=== PATIENT | female | born 1995 | race Caucasian/White ===

== ENCOUNTER 2017-07-12 15:54 | Emergency (ER) | payer OTHER ==
--- NOTE | 2017-07-12 16:19 | EDPHY ---
H & P Stated Complaint: PAIN/NAUSEA SINCE LAST NIGHT, HAD SIMILAR 6MO AGO: DX GALLSTONES Time Seen by Provider: 07/12/17 16:19 - Personal History LMP (Females 10-55): 8-14 Days Ago Current Tetanus/Diphtheria Vaccine: Yes - Medical/Surgical History Hx Asthma: No Hx Chronic Respiratory Disease: No Hx Diabetes: No Hx Cardiac Disease: No Hx Renal Disease: No Hx Cirrhosis: No Hx Alcoholism: No Hx HIV/AIDS: No Hx Splenectomy or Spleen Trauma: No Other PMH: ADHD, HTN, hx concussion, GALLSTONES, IBS - Social History Smoking Status: Never smoked Constitutional: Initial Vital Signs Temperature (C) 36.7 C 07/12/17 16:01 Heart Rate 55 L 07/12/17 16:01 Respiratory Rate 18 07/12/17 16:01 Blood Pressure 99/68 L 07/12/17 16:01 O2 Sat (%) 97 07/12/17 16:01 O2 Delivery Mode Room Air Allergies/Adverse Reactions: No Known Allergies Allergy (Unverified 07/12/17 16:00) Home Medications: Medication Instructions Recorded Adderall 10 MG (RX) 06/11/15 VYVANSE 06/11/15 Nexplanon 07/12/17 Medical Decision Making - Diagnostics Imaging Results: Imaging Impressions Abdomen Ultrasound 07/12/17 16:30 Impression: 5 mm noncalcified gallstone without evidence for cholecystitis. Results called and discussed with Adonay Stevens MD, on 07/12/2017, 17:48. Imaging: Discussed imaging studies w/ call out operator Radiologist ED Course/Re-evaluation: CHIEF COMPLAINT: Nausea, abdominal pain. HISTORY OF PRESENT ILLNESS: This patient is a 22 year old female complaining of abdominal pain. She was diagnosed with gallstones 6 months ago after two weeks of abdominal pain and nausea. She was evaluated by her primary care physician at that time but did not undergo surgery due to her school schedule. Last night the same symptoms recurred. She endorses upper abdominal pain and nausea exactly like her last gallbladder symptoms. She denies any family history of cholecystics or cholelithiasis. No fever, diarrhea, urinary complaints, headache, cough, or other associated symptoms. REVIEW OF SYSTEMS: A 10 point review of systems was performed and is negative with the exception of the elements mentioned in the history of present illness. PHYSICAL EXAM: HR, BP, O2 Sat, RR. Temp noted General Appearance: Alert, well hydrated, appropriate, and non-toxic appearing. Head: Atraumatic without scalp tenderness or obvious injury Eyes: Pupils equal, round, reactive to light and accommodation, EOMI, no trauma , no injection. Ears: Clear bilaterally, no perforation, normal landmarks Nose: Atraumatic, no rhinorrhea, clear. Throat: There is no erythema or exudates, no lesions, normal tonsils, mucus membranes moist. Neck: Supple, nontender, no lymphadenopathy. Respiratory: No retractions, no distress, no wheezes, and no accessory muscle use. Lungs are clear to auscultation bilaterally. Cardiovascular: Regular rate and rhythm, no murmurs, rubs, or gallops. Bilateral carotid, radial, dorsalis pedis, and posterior tibial pulses intact. Good capillary refill all extremities. Gastrointestinal: RUQ tenderness. Abdomen is soft, non-distended, no masses, no rebound, no guarding, no peritoneal signs. Musculoskeletal: Normal active ROM of all extremities, atraumatic. Neurological: Alert, appropriate, and interactive. Nonfocal neuro exam. Skin: No rashes, good turgor, no nodules on palpation. Past medical history: Cholelithiasis. IBS. Concussion. Hypertension. ADHD Past surgical history: Noncontributory. Family history: Noncontributory Social history: Originally from [place]. Student. Lives in [place]. DIFFERENTIAL DIAGNOSIS: The differential diagnosis for the patient's abdominal pain included but was not limited to ovarian cyst, pelvic inflammatory disease, ovarian torsion, urinary tract infection, ectopic , cholecystitis, and appendicitis. MEDICAL DECISION MAKIN22 y/o female with history of cholelithiasis presents with upper abdominal pain and nausea. She has right upper quadrant tenderness on exam. She is afebrile here in the emergency department. Plan for US abdomen, labs including CBC, chemistries, liver, lipase, UA. Plan to administer 4mg IV Zofran, 0.5mg IV Dilaudid, and 1L IV NS for symptom relief. 17:[address] Dyson, radiologist. US abdomen shows 5 mm noncalcified gallstone without evidence for cholecystitis. I discussed the likely need for cholecystectomy at some point to prevent further gallbladder attacks. The patient would like to consider surgery this week. Her mother will be visiting from [place] and she has a week off of work, so timing is ideal for cholecystectomy should that be warranted. Plan to consult with Dr. Glez [facility]. 18:[address] Glez. He offers the patient admission for surgery in the morning vs. outpatient followup and surgery later tomorrow. Reassessed patient. She would like to be discharged home tonight but will follow up with Dr. Glez in the office tomorrow. She understands she needs to be NPO after midnight tonight. Return precautions discussed. She will be discharged with Ethan and Ursula for symptom relief overnight. She is comfortable with this plan. - Data Points Laboratory Results: Laboratory Results 07/12/17 16:45 07/12/17 16:45 07/12/17 07/12/17 07/12/17 16:45 16:45 16:45 WBC 7.08 10^3/uL 10^3/uL (3.80-9.50) RBC 4.28 10^6/uL 10^6/uL (4.18-5.33) Hgb 13.0 g/dL g/dL (12.6-16.3) Hct 39.1 % % (38.0-47.0) MCV 91.4 fL fL (81.5-99.8) MCH 30.4 pg pg (27.9-34.1) MCHC 33.2 g/dL g/dL (32.4-36.7) RDW 13.4 % % (11.5-15.2) Plt Count 242 10^3/uL 10^3/uL (150-400) MPV 10.1 fL fL (8.7-11.7) Neut % (Auto) 48.2 % % (39.3-74.2) Lymph % (Auto) 39.1 % % (15.0-45.0) [place] % (Auto) 10.3 % % (4.5-13.0) Eos % (Auto) 1.7 % % (0.6-7.6) Baso % (Auto) 0.4 % % (0.3-1.7) Nucleat RBC Rel Count 0.0 % % (0.0-0.2) Absolute Neuts (auto) 3.41 10^3/uL 10^3/uL (1.70-6.50) Absolute Lymphs (auto) 2.77 10^3/uL 10^3/uL (1.00-3.00) Absolute Monos (auto) 0.73 10^3/uL 10^3/uL (0.30-0.80) Absolute Eos (auto) 0.12 10^3/uL 10^3/uL (0.03-0.40) Absolute Basos (auto) 0.03 10^3/uL 10^3/uL (0.02-0.10) Absolute Nucleated RBC 0.00 10^3/uL 10^3/uL (0-0.01) Immature Gran % 0.3 % % (0.0-1.1) Immature Gran # 0.02 10^3/uL 10^3/uL (0.00-0.10) Sodium 142 mEq/L mEq/L (135-145) Potassium 4.1 mEq/L mEq/L (3.3-5.0) Chloride 103 mEq/L mEq/L (97-110) Carbon Dioxide 26 mEq/l mEq/l (22-31) Anion Gap 13 mEq/L mEq/L (8-16) BUN 8 mg/dL mg/dL (7-23) Creatinine 0.8 mg/dL mg/dL (0.6-1.0) Estimated GFR > 60 Glucose 82 mg/dL mg/dL (70-100) Calcium 9.3 mg/dL mg/dL (8.5-10.4) Total Bilirubin 1.7 mg/dL H mg/dL (0.1-1.4) Conjugated Bilirubin 0.5 mg/dL mg/dL (0.0-0.5) Unconjugated Bilirubin 1.2 mg/dL H mg/dL (0.0-1.1) AST 24 IU/L IU/L (14-46) ALT 31 IU/L IU/L (9-52) Alkaline Phosphatase 70 IU/L IU/L (38-126) Total Protein 7.0 g/dL g/dL (6.3-8.2) Albumin 4.2 g/dL g/dL (3.5-5.0) Lipase 126 IU/L IU/L (23-300) Urine Color PALE YELLOW Urine Appearance CLEAR Urine pH 7.0 (5.0-7.5) Ur Specific [place] 1.008 (1.002-1.030) Urine Protein NEGATIVE (NEGATIVE) Urine Ketones NEGATIVE (NEGATIVE) Urine Blood NEGATIVE (NEGATIVE) Urine Nitrate NEGATIVE (NEGATIVE) Urine Bilirubin NEGATIVE (NEGATIVE) Urine Urobilinogen NEGATIVE EU EU (0.2-1.0) Ur Leukocyte Esterase NEGATIVE (NEGATIVE) Urine RBC NONE SEEN /hpf /hpf (0-3) Urine WBC 0-1 /hpf /hpf (0-3) Ur Epithelial Cells TRACE /lpf /lpf (NONE-1+) Urine Mucus TRACE /lpf /lpf (NONE-1+) Urine Glucose NEGATIVE (NEGATIVE) Medications Given: Discontinued Medications Hydrocodone Bitart/Acetaminophen ([place] 5/325mg Prepack#6) 1 btl TAKEHOME EDNOW ONE Stop: 07/12/17 18:44 Last Admin: 07/12/17 18:55 Dose: 1 btl Hydromorphone HCl (Dilaudid) 0.5 mg IVP EDNOW ONE Stop: 07/12/17 16:30 Last Admin: 07/12/17 17:21 Dose: 0.5 mg Sodium Chloride (Ns) 1,000 mls @ 0 mls/hr IV EDNOW ONE; Wide Open PRN Reason: Protocol Stop: 07/12/17 16:30 Last Admin: 07/12/17 17:17 Dose: 1,000 mls Ondansetron HCl (Zofran) 4 mg IVP EDNOW ONE Stop: 07/12/17 16:30 Last Admin: 07/12/17 17:18 Dose: 4 mg Ondansetron HCl (Zofran Odt 4 Mg Prepack#2) 1 btl TAKEHOME EDNOW ONE Stop: 07/12/17 18:44 Last Admin: 07/12/17 18:55 Dose: 1 btl Departure - Departure Disposition: Home, Routine, Self-Care Clinical Impression: Cholelithiasis Qualifiers: Cholelithiasis location: gallbladder Cholecystitis presence: without cholecystitis Biliary obstruction: without biliary obstruction Qualified Code(s) : K80.20 - Calculus of gallbladder without cholecystitis without obstruction Condition: Good Instructions: Hydrocodone/Acetaminophen (By mouth), Ondansetron (By mouth), Gallstones (ED) Additional Instructions: 1. Follow up with Dr. Glez, general surgeon at 9:00am tomorrow. Do not have anything to eat or drink after midnight tonight. 2. Return to the emergency department for fever, worsening pain, uncontrollable vomiting or diarrhea, or other worsening of conditions or further concerns. Referrals: Florentino Glez MD [Medical Doctor] - As per Instructions Report Scribed for: Adonay Stevens Report Scribed by: Kasia Thomas Date of Report: 07/12/17 Time of Report: 16:20
[2017-07-12] MEDS ORDERED: ONDANSETRON 4 MG/2 ML VIAL IVP ONE (16:29)
[2017-07-12] MEDS ORDERED: NS 1,000 ML IV ONE (16:29)
[2017-07-12] MEDS ORDERED: HYDROmorphONE/DILAUDID 2 MG/ML INJ IVP ONE (16:29)
[2017-07-12] MEDS ORDERED: HYDROmorphONE/DILAUDID 1 MG/ML INJ ONE (16:40)
[2017-07-12 16:58] LABS: PLATELET COUNT 242 10^3/uL (150-400)
[2017-07-12 18:37] VITALS: BP 120/75
[2017-07-12] MEDS ORDERED: HYDROCOD/APAP 5/325 PREPACK#6 BTL TAKEHOME ONE (18:43)
[2017-07-12] MEDS ORDERED: ONDANSETRON 4MG PREPACK#2 BTL TAKEHOME ONE (18:43)
== END 2017-07-12 18:50 | disposition home or self-care (01) ==
DX: K80.20 Calculus of gallbladder without cholecystitis without obstruction (principal); I10 Essential (primary) hypertension; E86.9 Volume depletion, unspecified
CPT/HCPCS: 96374; J1170; J2405

== ENCOUNTER 2017-07-13 11:39 | Day surgery (SDC) | payer OTHER ==
[2017-07-13] MEDS ORDERED: LR 1,000 ML IV ONE (12:02)
[2017-07-13] MEDS ORDERED: cefOXitin SODIUM 2 GM in NS 100 ML IV ONE (12:02)
[2017-07-13] MEDS ORDERED: ceFAZolin 1 GM/5 ML SYR ONE (15:09)
[2017-07-13] MEDS ORDERED: HEPARIN 1000 UNIT/1 ML MDV ONE (15:09)
[2017-07-13] MEDS ORDERED: IOTHALAMATE MEG (CONRAY) 50 ML VIAL IV ONE (15:09)
[2017-07-13] MEDS ORDERED: BUPIVACAINE 0.5% 30 ML SDV ONE (15:09)
[2017-07-13] MEDS ORDERED: MIDAZOLAM 2 MG/2 ML VIAL IVP ONE (15:41)
[2017-07-13] MEDS ORDERED: MIDAZOLAM 2 MG/2 ML VIAL ONE (15:48)
--- NOTE | 2017-07-13 15:53 | PDANEPAE ---
ANE History of Present Illness laparoscopic cholecystectomy ANE Past Medical History - Cardiovascular History Hx Hypertension: No Hx Arrhythmias: No Hx Chest Pain: No Hx Coronary Artery / Peripheral Vascular Disease: No Hx CHF / Valvular Disease: No Hx Palpitations: No - Pulmonary History Hx COPD: No Hx Asthma/Reactive Airway Disease: No Hx Recent Upper Respiratory Infection: No Hx Oxygen in Use at Home: No Hx Sleep Apnea: No Pulmonary History Comment: Pt reports "I smoke marijuana everyday." - Neurologic History Hx Cerebrovascular Accident: No Hx Seizures: No Hx Dementia: No Neurologic History Comment: concusions x 2 - 2 weeks ago "minor" - Endocrine History Hx Diabetes: No Obesity: no - Renal History Hx Renal Disorders: No - Liver History Hx Hepatic Disorders: No - Neurological & Psychiatric Hx Hx Neurological and Psychiatric Disorders: Yes Neurological / Psychiatric History Comment: ADHD - Congenital Disorder History Hx Congenital Disorders: No - GI History GERD: no Hx Gastrointestinal Disorders: Yes Gastrointestinal History Comment: IBS. Gallstones - Chronic Pain History Chronic Pain: No - Surgical History Prior Surgeries: tonsillectomy, ear tubes, septoplasty ANE Review of Systems Review of Systems: - Exercise capacity METS (RN): 6 METS ANE Patient History - Allergies Allergies/Adverse Reactions: No Known Allergies Allergy (Unverified 07/12/17 16:00) - Home Medications Home Medications: Adderall 10 MG (RX) 06/11/15 [Last Taken 07/11/17] VYVANSE 06/11/15 [Last Taken 2 Weeks Ago ~06/29/17] Nexplanon 07/12/17 [Last Taken 07/13/17] - NPO status NPO Since - Liquids (Date): 07/12/17 NPO Since - Liquids (Time): 22:00 NPO Since - Solids (Date): 07/12/17 NPO Since - Solids (Time): 22:00 - Anes Hx Anes Hx: no prior problems - Smoking Hx Smoking Status: Current every day smoker (marihuana only) Marijuana use: Yes - Alcohol Use Alcohol Use: Other (3 drinks X 3/week) - Family Anes Hx Family Anes Hx: none ANE Labs/Vital Signs - Vital Signs Blood Pressure: 107/49 Heart Rate: 54 Respiratory Rate: 18 O2 Sat (%): 96 Height: 167.64 cm Weight: 63.503 kg ANE Physical Exam - Airway Neck exam: FROM Mallampati Score: Class 1 Mouth exam: normal dental/mouth exam - Pulmonary Pulmonary: no respiratory distress - Cardiovascular Cardiovascular: regular rate and rhythym - ASA Status ASA Status: II (8)
--- NOTE | 2017-07-13 15:54 | PDHPUP ---
History & Physical Update H&P update statement: This history and physical update is based on an assessment of the patient which was completed after admission or registration (within 24 hours), but prior to the surgery/procedure. H&P update: H&P reviewed & patient examined, no change in patient's condition since H&P completed
[2017-07-13] MEDS ORDERED: fentaNYL 250 MCG/5 ML INJ ONE (16:00)
[2017-07-13] MEDS ORDERED: PROPOFOL 200 MG/20 ML VIAL ONE (16:01)
[2017-07-13] MEDS ORDERED: DEXAMETHASONE 4 MG/ML VIAL ONE (16:01)
[2017-07-13] MEDS ORDERED: ONDANSETRON 4 MG/2 ML VIAL ONE (16:51)
[2017-07-13] MEDS ORDERED: NALOXONE HCL 0.4 MG/ML INJ IVP PRN (17:01)
[2017-07-13] MEDS ORDERED: ACETAMINOPHEN 500 MG TAB PO PRN (17:01)
[2017-07-13] MEDS ORDERED: HYDROCODONE/APAP 5/325 TAB PO PRN (17:01)
[2017-07-13] MEDS ORDERED: oxyCODONE IR 5 MG TAB PO PRN (17:01)
[2017-07-13] MEDS ORDERED: ONDANSETRON 4 MG/2 ML VIAL IVP PRN (17:01)
[2017-07-13] MEDS ORDERED: GLYCOPYRROLATE 0.2 MG/1 ML VIAL ONE ×3 (17:07→17:45)
[2017-07-13] MEDS ORDERED: NEOSTIGMINE METHYLSULFATE 3 MG/3 ML SYR ONE (17:12)
--- NOTE | 2017-07-13 17:25 | POSTANESTH ---
Post Anesthetic Evaluation Cardiovascular Status: Normal, Stable Respiratory Status: Normal, Stable Level of Consciousness/Mental Status: Can Participate in Eval Pain Control: Adequate, Prn Tx Ordered Nausea/Vomiting Control: Adequate, Prn Tx Ordered Complications Possibly Related to Anesthesia: None Noted
[2017-07-13] MEDS ORDERED: fentaNYL 100 MCG/2 ML INJ ONE (17:31)
[2017-07-13] MEDS: fentaNYL 100 MCG/2 ML INJ IVP PRN ×3 (17:32→18:21)
[2017-07-13] MEDS ORDERED: HYDROCODONE/APAP 5/325 TAB ONE (17:56)
[2017-07-13] MEDS ORDERED: GLYCOPYRROLATE 0.2 MG/1 ML VIAL IVP ONE (18:00)
[2017-07-13] MEDS ORDERED: oxyCODONE IR 5 MG TAB ONE (18:42)
[2017-07-13 19:26] VITALS: BP 119/80
--- NOTE | 2017-07-14 00:58 | POSTOPPROG ---
Post Op Note Date of Operation: 07/14/17 Surgeon: Florentino Glez Anesthesiologist: HARVINDER Anesthesia: GET(General Endotracheal) Pre-op Diagnosis: CHOLELITHIASIS AND CHOLECYSTITIS Post-op Diagnosis: SAME Indication: RECURRENT PAIN Procedure: LAP SEKOU Findings: SUBACUTE INFLAMED GALLBLADDER WITH STONE Inf/Abcess present in the surg proc area at time of surgery?: Yes Depth: Organ Space EBL: Minimal Complications: 0 Specimen(s): GALLBLADDER
== END 2017-07-13 19:19 | disposition home or self-care (01) ==
LOC: FSGY 11:39
PROVIDERS: ATTEND Surgery
PROC: 0FT44ZZ Resection of Gallbladder, Percutaneous Endoscopic Approach (ICD-10-PCS; principal; 2017-07-13 13:00)
DX: K80.00 Calculus of gallbladder with acute cholecystitis without obstruction (principal); F12.90 Cannabis use, unspecified, uncomplicated; F90.9 Attention-deficit hyperactivity disorder, unspecified type
CPT/HCPCS: J0694; J1100; J2250; J2405; J2704; J2710; J3010; Q9961

== ENCOUNTER 2017-07-26 20:41 | Emergency (ER) | payer OTHER ==
[2017-07-26] MEDS ORDERED: OXYCODONE/APAP 5/325MG PREPACK#4 BTL TAKEHOME ONE (21:17)
[2017-07-26] MEDS ORDERED: NEOMY SULF/POLYMYX B SULF/HC 10ML OTIC SOLUTION OT ONE (21:17)
--- NOTE | 2017-07-26 21:17 | EDPHY ---
H & P Stated Complaint: DIF HEARING R EAR/AFTER POURING HYDROGEN PEROXIDE IN EAR Source: Patient Exam Limitations: No limitations - Personal History LMP (Females 10-55): 15-21 Days Ago Current Tetanus Diphtheria and Acellular Pertussis (TDAP): Yes - Medical/Surgical History Hx Asthma: No Hx Chronic Respiratory Disease: No Hx Diabetes: No Hx Cardiac Disease: No Hx Renal Disease: No Hx Cirrhosis: No Hx Alcoholism: No Hx HIV/AIDS: No Hx Splenectomy or Spleen Trauma: No Other PMH: ADHD, HTN, hx concussion, GALLSTONES, IBS - Social History Smoking Status: Never smoked Time Seen by Provider: 07/26/17 21:11 HPI/ROS: HPI: This is a 22-year-old female who presents with Chief Complaint: DIF HEARING R EAR/AFTER POURING HYDROGEN PEROXIDE IN EAR Location: Right ear Quality: Pain Duration: 1 day Signs and Symptoms: no fever, no nausea, no vomiting, no diarrhea, no urinary symptoms, no chest pain, no shortness of breath, no wheezing, no cough, no sore throat, no neck stiffness, no joint pain, no swollen glands, + ear pain, no rash Timing: Acute Severity: Moderate Context: Patient reports that she has a history of chronic otitis media and is status post tympanostomy tubes bilaterally 1 year ago. She was swimming yesterday and did a flip on her water and felt pain in both of her ears immediately. She reports that she poured hydrogen peroxide into her right external auditory canal and felt severe, constant pain. She is worried that she may have hurt her tympanostomy tubes. [id number] Tylenol and ibuprofen are not controlling the pain. She denies any ear discharge. She reports that her hearing"is different on the right than the left." Denies any dizziness, fever. Modifying Factors: Hydrogen peroxide Comment: ROS: see HPI Constitutional: + fever, no chills, no weight loss Eyes: No blurred vision Respiratory: No shortness of breath, no cough Cardiovascular: No chest pain, no palpitations Gastrointestinal: No nausea, no vomiting, no diarrhea, no hematemesis, no blood in stool Genitourinary: No dysuria, no blood in urine Extremities: No myalgias, no edema Neurologic: No weakness, no numbness Skin: No rashes, no petechiae Hematologic: No bruising, no bleeding MEDICAL/SURGICAL/SOCIAL HISTORY: Medical history: ADHD, HTN, hx concussion, GALLSTONES, IBS Surgical history: Denies Social history: Student. Family history noncontributory. CONSTITUTIONAL: Polite and cooperative nontoxic-appearing young adult white female, awake and alert, no obvious distress HEENT: Atraumatic and normocephalic, PERRL, EOMI. Nares patent; no rhinorrhea; no nasal mucosal edema. Right Tympanic membranes mild erythema with mild effusion accompanied by yellowish discharge in the external auditory canal that is 10% occluded; tympanostomy tube in place. Left tympanic membrane is clear with tympanostomy tube in place. Oropharynx clear, no exudate and moist pink mucosa. Airway patent. No lymphadenopathy. No meningismus. Cardiovascular: Normal S1/S2, regular rate, regular rhythm, without murmur rub or gallop. PULMONARY/CHEST: Symmetrical and nontender. Clear to auscultation bilaterally. Good air movement. No accessory muscle usage. ABDOMEN: Soft, nondistended, nontender, no rebound, no guarding, no peritoneal signs, no masses or organomegaly. No CVAT. EXTREMITIES: 2/2 pulses, strength 5/5, no deformities, no clubbing, no cyanosis or edema. NEUROLOGICAL: no focal neuro deficits. GCS 15. SKIN: Warm and dry, no erythema. no rash. Good capillary refill. (Sidra Clemens) Constitutional: Initial Vital Signs Temperature (C) 36.8 C 07/26/17 20:47 Heart Rate 74 07/26/17 20:47 Respiratory Rate 16 07/26/17 20:47 Blood Pressure 136/78 H 07/26/17 20:47 O2 Sat (%) 96 07/26/17 20:47 O2 Delivery Mode Room Air Allergies/Adverse Reactions: No Known Allergies Allergy (Unverified 07/12/17 16:00) Home Medications: Medication Instructions Recorded Adderall 10 MG (RX) 06/11/15 VYVANSE 06/11/15 Nexplanon 07/12/17 Medical Decision Making ED Course/Re-evaluation: No signs of tympanic membrane rupture. Given Cortisporin otic suspension and Percocet take-home pack. Advised to follow up with PCP or ENT. This patient was seen under the supervision of my secondary supervising physician. I evaluated care for this patient independently. Discussed this patient with Dr. Medrano who did not see the patient. (Sidra Clemens) I did not see this patient while she was in the emergency department. However her care was discussed with the PA while the patient was in the department. I agree with treatment plan and management (Orlin Medrano) Differential Diagnosis: Differential diagnosis includes but is not limited to otitis media, otitis externa, tympanic membrane rupture, barotrauma. (Sidra Clemens) - Data Points Medications Given: Discontinued Medications Neomycin/Polymyxin/Hydrocortisone (Cortisporin Otic Solution) 3 drops OT EDNOW ONE Stop: 07/26/17 21:18 Last Admin: 07/26/17 21:56 Dose: 3 drops Oxycodone/Acetaminophen (Percocet 5/325mg Prepack#4) 1 btl TAKEHOME EDNOW ONE Stop: 07/26/17 21:18 Last Admin: 07/26/17 21:49 Dose: 1 btl Departure - Departure Disposition: Home, Routine, Self-Care Clinical Impression: Otitis externa of right ear Qualifiers: Otitis externa type: swimmer's ear Chronicity: acute Qualified Code(s): H60.331 - Swimmer's ear, right ear Condition: Good Instructions: Oxycodone/Acetaminophen (By mouth), Otitis Externa (ED) Additional Instructions: Take Tylenol 650 mg every 4 hours and/or Ibuprofen 600 mg every 8 hours with food as needed for pain. Use Percocet every 6 hours as needed for severe/break through pain. Do not use Tylenol and Percocet concomitantly. Apply ear drops minutes 4 drops 3 to 4 times daily x 5 days. If there is no improvement in 3 days, follow up with PCP or ENT. Referrals: PCP Not In,Dictionary [Medical Doctor] - As per Instructions
[2017-07-26 21:59] VITALS: BP 121/64
== END 2017-07-26 21:57 | disposition home or self-care (01) ==
DX: H60.331 Swimmer's ear, right ear (principal); I10 Essential (primary) hypertension

== ENCOUNTER 2018-01-17 12:56 | Emergency (ER) | payer OTHER ==
[2018-01-17] MEDS ORDERED: DEXAMETHASONE 10 MG/ML VIAL IVP ONE (13:10)
[2018-01-17] MEDS ORDERED: METOCLOPRAMIDE 10 MG/2 ML VIAL IVP ONE (13:10)
[2018-01-17] MEDS ORDERED: KETOROLAC 30 MG/1 ML SDV IVP ONE (13:10)
[2018-01-17] MEDS ORDERED: NS 1,000 ML IV ONE (13:10)
--- NOTE | 2018-01-17 13:14 | EDPHY ---
H & P Stated Complaint: Headache x 4 days Time Seen by Provider: 01/17/18 13:02 HPI/ROS: CHIEF COMPLAINT: A headache HISTORY OF PRESENT ILLNESS: Patient is a 22-year-old female comes to the emergency department complaining of a migraine headache for the last 5 days. She states that she has had headaches before but they have not typically lasted this long. She states that she has missed to tests because of it. She presented to urgent care yesterday where they gave her an IM dose of ketorolac. She states that her symptoms resolved for few hours but then returned. She tried taking sumatriptan earlier today without improvement. She has had difficulty sleeping except for last night when she took 1 of her old doses of trazodone. No fever. No trauma. No altered mental status. No focal weakness or deficits. She did have some blurred vision at the onset and some tingling in her scalp which she has experienced before with migraines. She does have mild photophobia. She does have nausea but no vomiting. Severity: Moderate Modifying factors: Temporary improved with ketorolac REVIEW OF SYSTEMS: Constitutional: denies: chills, fever, recent illness, recent injury EENTM: denies: blurred vision, double vision, nose congestion Respiratory: denies: cough, shortness of breath Cardiac: denies: chest pain, irregular heart rate, lightheadedness, palpitations Gastrointestinal/Abdominal: denies: abdominal pain, diarrhea, nausea, vomiting, blood streaked stools Genitourinary: denies: dysuria, frequency, hematuria, pain Musculoskeletal: denies: joint pain, muscle pain Skin: denies: lesions, rash, jaundice, bruising Neurological: See HPI denies: numbness, paresthesia, tingling, dizziness, weakness Hematologic/Lymphatic: denies: blood clots, easy bleeding, easy bruising Immunologic/allergic: denies: HIV/AIDS, transplant 10 systems reviewed and negative except as noted EXAM: GENERAL: Well-appearing, well-nourished and in no acute distress. HEAD: Atraumatic, normocephalic. EYES: Pupils equal round and reactive to light, extraocular movements intact, sclera anicteric, conjunctiva are normal. ENT: TMs normal, nares patent, oropharynx clear without exudates. Moist mucous membranes. NECK: Normal range of motion, supple without lymphadenopathy or JVD. LUNGS: Breath sounds clear to auscultation bilaterally and equal. No wheezes rales or rhonchi. HEART: Regular rate and rhythm without murmurs, rubs or gallops. ABDOMEN: Soft, nontender, normoactive bowel sounds. No guarding, no rebound. No masses appreciated. BACK: No CVA tenderness, no spinal tenderness, step-offs or deformities EXTREMITIES: Normal range of motion, no pitting or edema. No clubbing or cyanosis. NEUROLOGICAL: Cranial nerves II through XII grossly intact. Normal speech, normal gait. 5/5 strength, normal movement in all extremities, normal sensation , normal reflexes PSYCH: Normal mood, normal affect. SKIN: Warm, dry, normal turgor, no visible rashes or lesions. Source: Patient Exam Limitations: No limitations - Personal History LMP (Females 10-55): 1-7 Days Ago Current Tetanus Diphtheria and Acellular Pertussis (TDAP): Yes - Medical/Surgical History Hx Asthma: No Hx Chronic Respiratory Disease: No Hx Diabetes: No Hx Cardiac Disease: No Hx Renal Disease: No Hx Cirrhosis: No Hx Alcoholism: No Hx HIV/AIDS: No Hx Splenectomy or Spleen Trauma: No Other PMH: ADHD, hx concussion, GALLSTONES, IBS, insomnia - Family History Significant Family History: No pertinent family hx - Social History Smoking Status: Never smoked Alcohol Use: Sober Drug Use: None Constitutional: Initial Vital Signs Temperature (C) 36.6 C 01/17/18 12:59 Heart Rate 80 01/17/18 12:59 Respiratory Rate 18 01/17/18 12:59 Blood Pressure 109/75 01/17/18 12:59 O2 Sat (%) 97 01/17/18 12:59 O2 Delivery Mode Room Air Allergies/Adverse Reactions: No Known Allergies Allergy (Verified 01/17/18 12:58) Home Medications: Medication Instructions Recorded Adderall 10 MG (RX) 06/11/15 VYVANSE 06/11/15 Nexplanon 07/12/17 Metoclopramide [Reglan 10 mg tab 10 mg PO BID PRN #10 tab 01/17/18 (RX)] Medical Decision Making ED Course/Re-evaluation: The patient is primarily requesting medications to help with her headache. She has no significant signs of trauma or infection. This is not unlike previous migraines. No thunderclap onset. No focal weakness or deficits. We discussed CT scanning and she would like to avoid. I agree that it is unlikely to be beneficial. 3:00 p.m. the patient feels completely better. She is ambulatory. She is asking to go home. I will prescribe her Reglan and encouraged to take ibuprofen as well. We discussed indications for returning such as fever or worsening headache or focal neurologic deficits. Differential Diagnosis: Partial list of the Differential diagnosis considered include but were not limited to; migraine, tension headache and although unlikely based on the history and physical exam, I also considered ridge, infection, CVA dissection. I discussed these differential diagnoses and the plan with the patient as well as the usual and expected course. The patient understands that the diagnosis is provisional and that in medicine we are not always correct and that further workup is often warranted. Usual and customary warnings were given. All of the patient's questions were answered. The patient was instructed to return to the emergency department should the symptoms at all worsen or return, otherwise to followup with the physician as we discussed. - Data Points Laboratory Results: Laboratory Results 01/17/18 13:21 01/17/18 13:21 01/17/18 01/17/18 01/17/18 13:21 13:21 13:21 WBC 9.56 10^3/uL H 10^3/uL (3.80-9.50) RBC 4.41 10^6/uL 10^6/uL (4.18-5.33) Hgb 13.5 g/dL g/dL (12.6-16.3) Hct 40.7 % % (38.0-47.0) MCV 92.3 fL fL (81.5-99.8) MCH 30.6 pg pg (27.9-34.1) MCHC 33.2 g/dL g/dL (32.4-36.7) RDW 12.2 % % (11.5-15.2) Plt Count 238 10^3/uL 10^3/uL (150-400) MPV 10.3 fL fL (8.7-11.7) Neut % (Auto) 66.1 % % (39.3-74.2) Lymph % (Auto) 21.9 % % (15.0-45.0) Grand % (Auto) 10.3 % % (4.5-13.0) Eos % (Auto) 1.2 % % (0.6-7.6) Baso % (Auto) 0.4 % % (0.3-1.7) Nucleat RBC Rel Count 0.0 % % (0.0-0.2) Absolute Neuts (auto) 6.33 10^3/uL 10^3/uL (1.70-6.50) Absolute Lymphs (auto) 2.09 10^3/uL 10^3/uL (1.00-3.00) Absolute Monos (auto) 0.98 10^3/uL H 10^3/uL (0.30-0.80) Absolute Eos (auto) 0.11 10^3/uL 10^3/uL (0.03-0.40) Absolute Basos (auto) 0.04 10^3/uL 10^3/uL (0.02-0.10) Absolute Nucleated RBC 0.00 10^3/uL 10^3/uL (0-0.01) Immature Gran % 0.1 % % (0.0-1.1) Immature Gran # 0.01 10^3/uL 10^3/uL (0.00-0.10) Sodium 139 mEq/L mEq/L (135-145) Potassium 4.7 mEq/L mEq/L (3.5-5.2) Chloride 109 mEq/L mEq/L (97-110) Carbon Dioxide 22 mEq/l mEq/l (22-31) Anion Gap 8 mEq/L mEq/L (6-14) BUN 14 mg/dL mg/dL (7-23) Creatinine 0.8 mg/dL mg/dL (0.6-1.0) Estimated GFR > 60 Glucose 86 mg/dL mg/dL (70-100) Calcium 9.6 mg/dL mg/dL (8.5-10.4) Beta HCG, Qual NEGATIVE Medications Given: Discontinued Medications Dexamethasone (Decadron Injection) 10 mg IVP EDNOW ONE Stop: 01/17/18 13:11 Last Admin: 01/17/18 13:31 Dose: 10 mg Sodium Chloride (Ns) 1,000 mls @ 0 mls/hr IV ONCE ONE; Wide Open PRN Reason: Protocol Stop: 01/17/18 13:11 Last Admin: 01/17/18 13:30 Dose: 1,000 mls Ketorolac Tromethamine (Toradol) 15 mg IVP EDNOW ONE Stop: 01/17/18 13:11 Last Admin: 01/17/18 13:31 Dose: 15 mg Metoclopramide HCl (Reglan Injection) 10 mg IVP EDNOW ONE Stop: 01/17/18 13:11 Last Admin: 01/17/18 13:31 Dose: 10 mg Departure - Departure Disposition: Home, Routine, Self-Care Clinical Impression: Migraine headache Qualifiers: Migraine type: unspecified Status migrainosus presence: without status migrainosus Intractability: not intractable Qualified Code(s): G43.909 - Migraine, unspecified, not intractable, without status migrainosus Condition: Fair Instructions: Migraine Headache (ED) Referrals: NONE *PRIMARY CARE P,. [Primary Care Provider] - As per Instructions Stand Alone Forms: School Excuse Prescriptions: Metoclopramide [Reglan 10 mg tab (RX)] 10 mg PO BID PRN #10 tab PRN Reason: Headache
[2018-01-17 13:39] LABS: PLATELET COUNT 238 10^3/uL (150-400)
[2018-01-17 15:29] VITALS: BP 112/67
== END 2018-01-17 15:29 | disposition home or self-care (01) ==
DX: G43.909 Migraine, unspecified, not intractable, without status migrainosus (principal); Z87.820 Personal history of traumatic brain injury; F90.9 Attention-deficit hyperactivity disorder, unspecified type; E86.9 Volume depletion, unspecified
CPT/HCPCS: 96374; J1100; J1885; J2765

== ENCOUNTER 2018-04-23 19:51 | Emergency (ER) | payer OTHER ==
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
[2018-04-23] MEDS ORDERED: IOPAMIDOL (ISOVUE 370) 100 ML BTL IV ONE (21:25)
[2018-04-23 22:46] VITALS: BP 125/87
== END 2018-04-23 22:46 | disposition home or self-care (01) ==
DX: S06.0X0A Concussion without loss of consciousness, initial encounter (principal); S16.1XXA Strain of muscle, fascia and tendon at neck level, initial encounter; V49.40XA Driver injured in collision with unspecified motor vehicles in traffic accident, initial encounter; Y92.410 Unspecified street and highway as the place of occurrence of the external cause
CPT/HCPCS: L0172; Q9967